=== PATIENT | male | born 1975 | race Hispanic/Latino ===

== ENCOUNTER 2017-12-01 08:29 | Emergency (ER) | payer BC ==
[~2017-12-01] VITALS: Ht 172.7 cm; Wt 91.7 kg
[2017-12-01] MEDS ORDERED: HYDROCODONE/APAP 5MG-325MG TAB PO ONE (08:45)
== END 2017-12-01 09:00 | disposition home or self-care (01) ==
LOC: FSED 08:29
DX: R07.89 Other chest pain (principal); S46.812A Strain of other muscles, fascia and tendons at shoulder and upper arm level, left arm, initial encounter; X50.9XXA Other and unspecified overexertion or strenuous movements or postures, initial encounter; Y92.008 Other place in unspecified non-institutional (private) residence as the place of occurrence of the external cause
CPT/HCPCS: 93005; 99283

== ENCOUNTER 2019-10-05 22:44 | Emergency (ER) | payer BC ==
[~2019-10-05] VITALS: Ht 172.7 cm; Wt 91.6 kg
--- OUTSIDE RECORDS SUMMARY | 2019-10-05 22:47 | XMS REPORT ---
Author Author [facility] t Organization [facility] Address [address] [place] [address] Phone Unavailable Care Team Providers Care [employer] Business Segment Leader Name Role Phone NO, PCP PCP Unavailable Payers Payer Name Policy Type Policy Number Effective Date Expiration Date S john [facility] Ppo [id number] 2009 00:00:00 [facility] Problems This patient has no known problems. Allergies, Adverse Reactions, Alerts This patient has no known allergies or adverse reactions. Medications This patient has no known medications. Procedures This patient has no known procedures. Encounters Start Date/Time End Date/Time Encounter Type Admission Type Attendi [facility] Care Department Encounter ID Source 2017-12-01 08:29:00 2017-12-01 09:00:00 Departed Emergency Room [facility] [id number] [facility] Results This patient has no known results.
[2019-10-06] MEDS ORDERED: ONDANSETRON HCL 4 MG ORAL DISINTEGRATING TAB PO ONE
[2019-10-06] MEDS ORDERED: HYDROCODONE/APAP 5MG-325MG TAB PO ONE
[2019-10-06] MEDS ORDERED: FLUORESCEIN SOD(OPTH) 1 MG STRP OP ONE
[2019-10-06] MEDS ORDERED: ERYTHROMYCIN (OPTH) 3.5 GM OINT OP ONE ×2
[2019-10-06] MEDS ORDERED: ONDANSETRON HCL 4 MG ORAL DISINTEGRATING TAB ONE
[2019-10-06] MEDS ORDERED: EYE IRRIGATION (OPTH) 120 ML BTL OP ONE
[2019-10-06] MEDS ORDERED: TETRACAINE HCL 0.5% OPTH SOLN 4 ML BTL OP ONE
[2019-10-06] MEDS ORDERED: SODIUM CHLORIDE FLUSH 10 ML SYR IV ONE
[2019-10-06] MEDS ORDERED: HYDROCODONE/APAP 5MG-325MG TAB ONE
[2019-10-06] MEDS ORDERED: IBUPROFEN200 MG PO (00:30)
[2019-10-06] MEDS ORDERED: TYLENOL WITH C1 EACH PO (00:30)
[2019-10-06] MEDS ORDERED: ERYTHROMYCIN 2%30 GM OU (00:32)
--- NOTE | 2019-10-06 00:35 | Emergency Department Note ---
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 His put some Visine drops but the pain got worse. he was ok at work, no eye injuries, no eye pain until he was home. . 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 Any updates have been documented here. Past Medical History Recent Fever: No Clinical Suspicion of Infectio: No New/Unexplained Change in Ment: No Past Medical History: Hypertension Past Surgical History: Cholecysctectomy Social History Smoking Cessation: Never Smoker Alcohol Use: Social Any Illegal Drug Use: No TB Exposure/Symptoms: No Physically hurt or threatened: No Family History Family history of heart diseas: No Other Last Tetanus: unk Any Pre-Existing Lines (PICC,: No Review of Systems Review of Systems Constitutional: no symptoms EENTM: eye pain, blurred vision, tearing, other (unable to open both eyes) Cardiovascular: no symptoms Respiratory: no symptoms Gastrointestinal: no symptoms Genitourinary: no symptoms Musculoskeletal: no symptoms Neurological: no symptoms Psychological: no symptoms Endocrine: no symptoms Hematological/Lymphatic: no symptoms Review of other systems All other systems reviewed and negative. Physical Exam Related Data Allergies: Coded Allergies: No Known Allergies (Unverified , 12/01/17) Vital signs reviewed: Yes Physical Exam CONSTITUTIONAL Constitutional: well-developed, well-nourished HENT HENT: normocephalic, atraumatic, oropharynx clear/moist, nose normal HENT L/R: left ext ear normal, right ext ear normal IOP 21 left, 17 right, based on fluorescein stain, medium side V-shape corneal abrasion seen on left lower part of the iris, sparing the pupil. Small dotted abrasion right eye, also on lower field. Visual acuities not tested due pt unable to open his eyes due edema and pain. EYES Eyes: PERRL, conjunctivae normal (red), EOM normal, left eye discharge (swelling, clear discharge), right eye discharge (swelling, clear discharge) NECK Neck: ROM normal PULMONARY Pulmonary: effort normal, breath sounds normal CARDIOVASCULAR Cardiovascular: regular rhythm, heart sounds normal, capillary refill normal, normal rate GASTROINTESTINAL Abdominal: soft, nontender, bowel sounds normal GENITOURINARY Genitourinary: exam deferred SKIN Skin: warm, dry MUSCULOSKELETAL Musculoskeletal: ROM normal NEUROLOGICAL Neurological: alert, oriented x 3, no gross motor or sensory deficits PSYCHOLOGICAL Psychological: mood/affect normal, judgement normal Procedures Foreign Body - Eye Time out performed: Yes Location: right eye Topical anesthetic: tetracaine Foreign body: other (none seen) Evidence of corneal penetratio: No Technique: irrigation Post-procedure medication: ophthalmic antibiotic Patient tolerated procedure: well Additional comments none found, Critical Care Time Subsequent provider I assumed direction of critical care for this patient from another provider of my specialty. Assessment & Plan Assessment & Plan Problems: (1) Cornea abrasion (2) Thermal burn of cornea Assessment & Plan 44 yo yo TENZIN savage, likely has thermal/radiation burn due to welding and he he probably rubbed on his eyes causing the abrasion and other symptoms Depart Disposition: HOME, SELF-half-way Meds Active Scripts Erythromycin Base/Ethanol (ERYTHROMYCIN 2% GEL) 30 Gm Gel..gram., 1 INCH OU Q8H for 5 Days Prov:TENISHA DING MD 10/06/19 Ibuprofen (IBUPROFEN) 200 Mg Capsule, 600 MG PO [id number] PRN for pain, #60 TAB Prov:TENISHA DING MD 10/06/19 Acetaminophen With Codeine (TYLENOL WITH CODEINE #3 TABLET) 1 Each Tablet, 300 MG PO Q6H, #20 TAB Prov:TENISHA DING MD 10/06/19 Medications in the ED Fluorescein Sodium 1 mg ONCE ONCE OP ; Start 10/06/19 at 00:00; Stop 10/06/19 at 00:01 Tetracaine HCl 5 ml ONCE ONCE OP ; Start 10/06/19 at 00:00; Stop 10/06/19 at 00:01 Erythromycin 1 gm ONCE ONCE OP ; Start 10/06/19 at 00:00; Stop 10/06/19 at 00:01 Sodium Chloride 20 ml ONCE ONCE IV ; Start 10/06/19 at 00:00; Stop 10/06/19 at 00:01; Status UNV Eye Irrigation Solution 250 ml ONCE ONCE OP ; Start 10/06/19 at 00:00; Stop 10/06/19 at 00:01; Status UNV Acetaminophen/ Hydrocodone Bitart 2 ea ONCE ONCE PO ; Start 10/06/19 at 00:00; Stop 10/06/19 at 00:01; Status UNV Ondansetron HCl 4 mg ONCE ONCE PO ; Start 10/06/19 at 00:00; Stop 10/06/19 at 00:01; Status UNV Erythromycin 3.5 gm STK-MED ONCE OP ; Start 10/06/19 at 00:00; Stop 10/05/19 at 23:58; Status DC Attestation Provider Attestation 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 TENISHA DING MD October 06, 2019 00:35
== END 2019-10-06 00:50 | disposition home or self-care (01) ==
LOC: FSED 22:44
DX: H57.13 Ocular pain, bilateral (principal); H16.133 Photokeratitis, bilateral; S05.02XA Injury of conjunctiva and corneal abrasion without foreign body, left eye, initial encounter; S05.01XA Injury of conjunctiva and corneal abrasion without foreign body, right eye, initial encounter; I10 Essential (primary) hypertension
CPT/HCPCS: 99283; Q0162

== ENCOUNTER 2025-03-06 14:51 | Emergency (ER) | payer BC ==
[~2025-03-06] VITALS: Ht 175.3 cm; Wt 81.4 kg
[~2025-03-06 14:51] MED LIST: ERYTHROMYCIN 2%30 GM OU; IBUPROFEN200 MG PO; TYLENOL WITH C1 EACH PO
[2025-03-06] MEDS: ONDANSETRON HCL INJ 2MG/ML 2ML 2 MG/ML VIAL IV STA (15:24)
[2025-03-06] MEDS: SODIUM CHLORIDE 0.9% 1000ML 1,000 ML IV ONE (15:25)
[2025-03-06] MEDS: FENTANYL CITRATE/PF 100MCG/2 ML INJ IV ONE (15:25)
[2025-03-06] MEDS: KETOROLAC TROMETHAMINE 30 MG/ML VIAL IV STA (16:37)
[2025-03-06] MEDS ORDERED: FLOMAX0.4 MG PO (16:39)
[2025-03-06] MEDS ORDERED: CEPHALEXIN500 MG PO (16:40)
[2025-03-06] MEDS ORDERED: KETOROLAC TROME10 MG PO (16:41)
[2025-03-06] MEDS ORDERED: HYDROCODON-ACE1 EA11 PO (16:43)
[2025-03-06 16:46] VITALS: PULSE 85; RESP 17; TEMP 98.9; O2SAT 99
[2025-03-06] MEDS ORDERED: ONDANSETRON ODT4 MG PO (16:46)
[2025-03-06] MEDS ORDERED: ULTRAM 50MG50 MG PO (16:54)
== END 2025-03-06 17:10 | disposition home or self-care (01) ==
LOC: FSED 14:58
DX: R10.32 Left lower quadrant pain (principal); N13.2 Hydronephrosis with renal and ureteral calculous obstruction; R11.0 Nausea; K43.9 Ventral hernia without obstruction or gangrene; I10 Essential (primary) hypertension; E78.5 Hyperlipidemia, unspecified
CPT/HCPCS: 74176; 80053; 80307; 81003; 85025; 93005; 99284; J0696; J1885; J2405; J3010; J7030